=== PATIENT | female | born 1995 | race Caucasian/White ===

== ENCOUNTER → 2023-03-05 | Outpatient (CLI) | payer MEDICAID, SELFPAY ==
[2023-03-05 16:03] LABS: hCG Titer Quant., Serum 4 mIU/mL (1-3)
== END | disposition home or self-care (01) ==
LOC: WOBLAB 14:15
PROVIDERS: Visit Provider Student in an Organized Health Care Education/Training Program
DX: N91.2 Amenorrhea, unspecified (principal)
CPT/HCPCS: 36415; 84702

== ENCOUNTER → 2023-04-23 | Outpatient (CLI) | payer MEDICAID, SELFPAY ==
--- NOTE | 2023-04-23 15:02 | CT_ITS ---
EXAM: CT RIGHT LOWER EXTREMITY WITHOUT INTRAVENOUS CONTRAST, ANKLE CLINICAL INDICATION: PAIN R ANKLE TECHNIQUE: Helically acquired images were obtained of the right ankle without intravenous contrast. 2-D reformats were performed by the technologist. CTDIvol = ( 15.35 ) mGy, DLP = ( 466.28 ) mGycm This CT exam was performed using one or more of the following dose reduction techniques: automated exposure control, adjustment of the mA and/or kV according to patient size, and/or use of iterative reconstruction technique. COMPARISON: No relevant prior studies available. FINDINGS: Bones/Joints: Status post surgical fixation of fractures of the distal tibia and fibula. No hardware complications. No residual fracture lucencies. Type II accessory navicular. Moderate degenerative changes at the calcaneonavicular articulation. Ankle mortise is intact Soft tissues: Moderate posterior subtalar joint effusion. Ankle tendons are intact. Muscles are normal. Ligaments are not well seen on CT. No soft tissue masses or fluid collections. CT/Extremity Lower without Contra IMPRESSION: 1. Healed fractures of the tibia and fibula status post ORIF without complication. 2. No acute or healing fracture or malalignment. 3. Moderate posterior subtalar joint effusion. Electronically Signed: Jericho Martinez MD at 23:34 EDT ,
== END | disposition home or self-care (01) ==
LOC: CT 15:01
PROVIDERS: Referring Provider Orthopaedic Surgery; Visit Provider Orthopaedic Surgery
DX: M25.571 Pain in right ankle and joints of right foot (principal)
CPT/HCPCS: 73700

== ENCOUNTER → 2023-04-30 | Outpatient (CLI) | payer MEDICAID, SELFPAY ==
[2023-05-05 16:17] LABS: HPV Reflexed? NOT INDICATED
== END | disposition home or self-care (01) ==
LOC: LABSPEC 14:14
PROVIDERS: Visit Provider Nurse Practitioner Women's Health
DX: Z12.4 Encounter for screening for malignant neoplasm of cervix (principal)
CPT/HCPCS: 88175; G0145

== ENCOUNTER 2024-09-13 18:33 | Emergency (ER) | payer MEDICAID, SELFPAY ==
[2024-09-13 18:34] VITALS: BP 130/83; PULSE 79; RESP 16; TEMP 36.7; O2SAT 99; BMI 35.6
[2024-09-13 18:37] VITALS: BP 130/83; PULSE 79; RESP 16; TEMP 36.7; O2SAT 99
[2024-09-13] MEDS: Cephalexin 500 MG Capsule PO (19:23)
[2024-09-13] MEDS: Lidocaine 1% (20 ml mdv) 20 ML Vial INFILT (19:24)
== END 2024-09-13 20:25 | disposition left against medical advice (07) ==
PROVIDERS: Emergency Provider Emergency Medicine; Visit Provider Emergency Medicine
DX: L02.411 Cutaneous abscess of right axilla (principal); F17.210 Nicotine dependence, cigarettes, uncomplicated
CPT/HCPCS: 10060; 99282